=== PATIENT | male | born 1950 | race Caucasian/White ===

== ENCOUNTER 2023-08-11 06:38 | Day surgery (SDC) | payer MEDICARE, BC ==
[2023-08-09 11:04] VITALS: BMI 28.0
[2023-08-11] MEDS ORDERED: Lidocaine 1% MPF 2 ML VIAL ONE (08:00)
[2023-08-11] MEDS ORDERED: Sodium Chloride 0.9% 100 ML ONE ×2 (08:00→12:00)
[2023-08-11] MEDS ORDERED: CEFAZOLIN 2 GM VIAL ONE ×2 (08:00→12:00)
[2023-08-11] MEDS ORDERED: EPINEPHrine 1 MG/ML AMP ONE (08:05)
[2023-08-11] MEDS ORDERED: Bupivacaine PF 0.5% 30 ML VIAL ONE (08:05)
[2023-08-11] MEDS ORDERED: SUGAMMADEX SODIUM 200 MG/2 ML VIAL ONE (08:40)
[2023-08-11] MEDS ORDERED: Fentanyl 250 MCG/5 ML VIAL ONE (08:40)
[2023-08-11 08:58] LABS: Hematocrit 45.7 % (42.0-52.0); Hemoglobin 15.1 g/dL (14.0-18.0); Mean Corpuscular Hemoglobin 29.4 pg (27.0-31.0); Mean Corpuscular Volume 89.1 fl (78.0-98.0); Mean Platelet Volume 10.8 fL (7.4-10.4); Platelet Count 231 10x3/uL (130-400); Red Blood Cell (RBC) Count 5.13 mill/uL (4.70-6.10); White Blood Cell (WBC) Count 8.7 10x3/uL (4.8-10.8)
[2023-08-11] MEDS ORDERED: Rocuronium Bromide 10 MG/ML (10ML VIAL) ONE (08:59)
[2023-08-11] MEDS ORDERED: Glycopyrrolate 0.2 MG/ML 5 ML SYRINGE ONE (08:59)
[2023-08-11] MEDS ORDERED: Ondansetron PF 4 MG/2 ML Vial ONE (08:59)
[2023-08-11] MEDS ORDERED: PROPOFOL 200 MG/20 ML VIAL ONE (08:59)
[2023-08-11] MEDS ORDERED: ePHEDrine Sulfate 50 MG/10 ML VIAL ONE (08:59)
[2023-08-11] MEDS ORDERED: Ketorolac Tromethamine 30 MG/ML VIAL ONE (08:59)
[2023-08-11] MEDS ORDERED: NEOSTIGMINE 3 MG/3 ML SYR 3 MG/3 ML SYRINGE ONE (08:59)
[2023-08-11] MEDS ORDERED: Lidocaine 1% PF 5 ML VIAL ONE (08:59)
[2023-08-11] MEDS ORDERED: Dexamethasone 20 MG/5 ML VIAL ONE (08:59)
[2023-08-11] MEDS ORDERED: Tamsulosin HCl 0.4 MG CAP ONE (11:05)
[2023-08-11] MEDS ORDERED: HYDROcodone/Acetaminophen 5/325 mg Tablet ONE ×2 (13:11→13:57)
== END 2023-08-11 14:15 | disposition home or self-care (01) ==
LOC: SDC 06:38
PROVIDERS: ATTEND Neurological Surgery
PROC: 01NB0ZZ Release Lumbar Nerve, Open Approach (ICD-10-PCS; principal; 2023-08-11)
DX: M48.062 Spinal stenosis, lumbar region with neurogenic claudication (principal); M54.16 Radiculopathy, lumbar region; E78.5 Hyperlipidemia, unspecified; M19.90 Unspecified osteoarthritis, unspecified site; I10 Essential (primary) hypertension; Z96.653 Presence of artificial knee joint, bilateral; Z79.899 Other long term (current) drug therapy; Z79.82 Long term (current) use of aspirin; Z79.1 Long term (current) use of non-steroidal anti-inflammatories (NSAID)
CPT/HCPCS: 85027; 93005; 93010; J0171; J1100; J1885; J2405; J2704; J3010; J3490; S0020